=== PATIENT | female | born 1995 | race Caucasian/White ===

== ENCOUNTER 2018-09-13 17:27 | Emergency (ER) | payer MEDICAID ==
[~2018-09-13] VITALS: Ht 162.6 cm; Wt 54.5 kg
[2018-09-13 17:28] VITALS: BP 127/80
== END 2018-09-13 18:42 | disposition left against medical advice (07) ==
LOC: EMS 17:27
DX: F41.9 Anxiety disorder, unspecified (principal); Z53.21 Procedure and treatment not carried out due to patient leaving prior to being seen by health care provider
CPT/HCPCS: 93005

== ENCOUNTER 2018-09-27 13:34 | Emergency (ER) | payer MEDICAID ==
[~2018-09-27] VITALS: Ht 162.6 cm; Wt 61.4 kg
[2018-09-27] MEDS ORDERED: PB/HYOSCY/ATR/SCOP/LIDO/MAALOX 55 ML BOTTLE PO ONE (17:45)
[2018-09-27] MEDS ORDERED: ONDANSETRON HCL 4 MG TABLET PO ONE (17:45)
[2018-09-27 18:35] VITALS: BP 109/83
== END 2018-09-27 18:50 | disposition home or self-care (01) ==
LOC: EMS 13:35
DX: K21.9 Gastro-esophageal reflux disease without esophagitis (principal); F14.10 Cocaine abuse, uncomplicated
CPT/HCPCS: 81002; 81025; 99283; Q0162